=== PATIENT | female | born 1960 | race Caucasian/White ===

== ENCOUNTER 2022-06-12 16:55 | Emergency (ER) | payer BC ==
[2022-06-12 17:07] VITALS: BP 128/67; PULSE 89; RESP 18; TEMP 97.9; BMI 31.7
[2022-06-12 18:23] LABS: THROAT:GRP A STREP NOT DETECTED (NOTDETECTED)
== END 2022-06-12 18:53 | disposition home or self-care (01) ==
LOC: JERFT 16:55
DX: J04.0 Acute laryngitis (principal); J00 Acute nasopharyngitis [common cold]
CPT/HCPCS: 0241U-QW; 71046-TC-FY; 87651; 99284-25